=== PATIENT | male | born 1990 | race Caucasian/White ===

== ENCOUNTER → 2019-02-16 | Outpatient (CLI) | payer OTHER ==
--- NOTE | 2019-02-16 16:57 | RADIOLOGY REPORT (SQ) ---
EXAM DESCRIPTION: SKULL 1-3 VIEWS COMPLETED DATE/TIME: 02/16/2019 4:38 pm REASON FOR STUDY: Metal screening for MRI M54.5 LOW BACK PAIN COMPARISON: None. NUMBER OF VIEWS: Two Views. TECHNIQUE: Hayden's and lateral lateral views. LIMITATIONS: None. FINDINGS: SKULL: Sutures are normal. No skull fractures. No sinus fluid levels. OTHER: No other significant finding. Dental hardware noted IMPRESSION: No evidence of intra orbital metallic radiopaque foreign body. TECHNICAL DOCUMENTATION: JOB ID: [id number] [employer]- All Rights Reserved Reading location - IP/workstation name: [email or web address]
--- NOTE | 2019-02-17 09:47 | RADIOLOGY REPORT (SQ) ---
EXAM DESCRIPTION: MRI LUMBAR SPINE WITHOUT COMPLETED DATE/TIME: 02/16/2019 5:35 pm REASON FOR STUDY: M54.5 LOW BACK PAIN M54.5 LOW BACK PAIN COMPARISON: None. TECHNIQUE: Sagittal and Axial imaging includes T1, T2, STIR and gradient echo sequences. Coronal T2/ HASTE imaging. LIMITATIONS: None. FINDINGS: VISUALIZED UPPER ABDOMEN: Limited evaluation. No acute or suspicious findings suggested. SEGMENTATION: No transitional anatomy. The lowest well-developed disc space is labeled L5-S1. ALIGNMENT: Anatomic. VERTEBRAE: Intact. BONE MARROW: Reactive vertebral body endplate changes at L2-3 DISC SIGNAL: Disc space loss of height with decreased T2 weighted signal at L2-3 POSTERIOR ELEMENTS: Generally intact. No pars defect evident. HARDWARE: None in the spine. CORD AND CONUS: Normal in size and signal intensity. Conus at the T12 level. SOFT TISSUES: No aortic aneurysm seen. No bulky retroperitoneal adenopathy or mass. No paraspinal mas s or fluid. T11-12: Unremarkable T12-L1: Unremarkable L1-L2: Unremarkable L2-L3: Very mild diffuse posterior disc bulge and mild facet and ligament hypertrophy is present. No significant central canal or foraminal stenosis L3-L4: Minimal posterior disc bulging and mild bilateral facet and ligament hypertrophy is present wi thout significant central or foraminal stenosis L4-L5: Tiny right foraminal and lateral annular tear and disc bulge abuts the right L4 nerve root as it exits the neural foramen without nerve root flattening. Minimal right foraminal narrowing. This is best shown on axial T2 image 25, and sagittal T2 image 5-7. Elsewhere at L4-5 there is minimal po sterior disc bulging and mild facet hypertrophy without central canal or left foraminal narrowing L5-S1: No central or foraminal stenosis SACRUM: Visualized upper sacrum intact. OTHER: No other significant findings. IMPRESSION: Tiny right foraminal and lateral annular tear at L4-5 without significant central or for aminal encroachment TECHNICAL DOCUMENTATION: JOB ID: [id number] [employer]- All Rights Reserved Reading location - IP/workstation name: [email or web address]
== END ==
LOC: RAD 16:14
PROVIDERS: ATTEND Nurse Practitioner Family
DX: M54.5 Low back pain (principal)
CPT/HCPCS: 70250; 72148